=== PATIENT | female | born 1960 | race Caucasian/White ===

== ENCOUNTER 2023-12-22 06:59 | Day surgery (SDC) | payer BC ==
[2023-12-22] VITALS (9 sets, daily range): BP systolic 111–142; BP diastolic 43–93; PULSE 62–76; RESP 16; TEMP 97.8; O2SAT 96–99
[~2023-12-22] VITALS: Ht 177.8 cm; Wt 76.4 kg
[2023-12-22 08:49] LABS: PROTHROMBIN TIME 10.7 SECONDS (9.0-12.0)
[2023-12-22] MEDS ORDERED: OXYC10TA47 PO (08:53)
[2023-12-22] MEDS ORDERED: ATOR40TA72 PO (08:53)
[2023-12-22] MEDS ORDERED: UBID100C16 PO (08:53)
[2023-12-22] MEDS ORDERED: LEVO88TA7 PO (08:53)
[2023-12-22 10:05] LABS: ALBUMIN 3.7 G/DL (3.4-5.0); ANION GAP 8 (8-16); CALCIUM 9.9 MG/DL (8.5-10.1); CHLORIDE 105 MMOL/L (99-107); CREATININE 0.69 MG/DL (0.40-0.90); GLUCOSE 84 MG/DL (70-104); MAGNESIUM 1.9 MG/DL (1.5-2.4); SODIUM 138 MMOL/L (135-145); TOTAL CARBON DIOXIDE 25.4 MMOL/L (24-32); eCRCL 90 ML/MIN; eGFR 86 ML/MIN
[2023-12-22] MEDS: sodium bicarbonate 1meq/ml syr 150 ML in dextrose 5%-water 1,000 ML IV ONE (10:09)
[2023-12-22 10:14] LABS: BLOOD UREA NITROGEN 15 MG/DL (7-18); BUN/CREATININE RATIO 21.7 (10.0-20.0)
[2023-12-22] MEDS: normal saline 1,000 ML IV SCH (10:19)
[2023-12-22] MEDS: diphenhydrAMINE 25mg capsule PO PRN (10:20)
[2023-12-22] MEDS ORDERED: verapamil 2.5 mg/ml inj IV ONE (12:09)
[2023-12-22] MEDS ORDERED: LIDOcaine 1% (10mg/ml) 2ml vial ONE (12:09)
[2023-12-22] MEDS ORDERED: midazolam 1 mg/ML 2ml injection ONE (12:10)
[2023-12-22] MEDS ORDERED: iohexol 350MG/ML 100ml bottle IV ONE (12:10)
[2023-12-22] MEDS ORDERED: iohexol 350 MG/ML 50ML vial IV ONE (12:10)
[2023-12-22] MEDS ORDERED: fentaNYL/PF 50MCG/1 ML 2ML syringe ONE (12:10)
[2023-12-22] MEDS ORDERED: heparin 1,000unit/ml 10ml vial 10 ML ONE (12:10)
[2023-12-22] MEDS ORDERED: nitroGLYCERIN 500mcg/5mL D5W 5 ML IV ONE (12:12)
[2023-12-22 12:38] LABS: HEMATOCRIT 41.2 % (37.7-47.9); HEMOGLOBIN 13.6 G/DL (11.5-16.0); MEAN CORPUSCULAR HEMOGLOBIN 28.7 PG (27-31.2); MEAN CORPUSCULAR VOLUME 87.1 FL (81-97); PLATELET COUNT 346 X10'3 (130-400); RED BLOOD COUNT 4.73 X10'6 (3.60-4.90); RED CELL DISTRIBUTION WIDTH 13.2 % (11-16); WHITE BLOOD COUNT 13.1 X10'3 (4.5-11.0)
[2023-12-22] MEDS ORDERED: HYDROcodone/acetaminophen 5mg/325mg tablet PO PRN (13:50)
[2023-12-22] MEDS ORDERED: HYDROcodone/acetaminophen 10/325mg tab PO PRN (13:50)
[2023-12-22] MEDS ORDERED: ondansetron/PF 4mg/2ml inj IV PRN (13:50)
[2023-12-22] MEDS ORDERED: proCHLORperazine 10 MG/2 ml inj IV PRN (13:50)
[2023-12-22 14:14] LABS: MM BASOPHILS % (MANUAL) 2 % (0-1); MM EOSINOPHILS % (MANUAL) 1 % (0-6); MM LYMPHOCYTES % (MANUAL) 62 % (21-51); MM MONOCYTES % (MANUAL) 7 % (2-12); MM NEUTROPHILS % (MANUAL) 28 % (42-75); MM PLATELET ESTIMATE NORMAL; MM RBC MORPHOLOGY NORMAL; MM TOTAL CELLS COUNTED 100
== END 2023-12-22 16:05 | disposition home or self-care (01) ==
LOC: SSTAY O 06:59
PROVIDERS: ATTEND Internal Medicine Cardiovascular Disease
DX: R07.9 Chest pain, unspecified (principal); I25.10 Atherosclerotic heart disease of native coronary artery without angina pectoris; E78.00 Pure hypercholesterolemia, unspecified; E03.9 Hypothyroidism, unspecified; G43.109 Migraine with aura, not intractable, without status migrainosus; Z79.890 Hormone replacement therapy; Z79.891 Long term (current) use of opiate analgesic; Z90.722 Acquired absence of ovaries, bilateral; Z90.79 Acquired absence of other genital organ(s); Z98.890 Other specified postprocedural states; Z80.9 Family history of malignant neoplasm, unspecified; Z82.49 Family history of ischemic heart disease and other diseases of the circulatory system
CPT/HCPCS: 36415; 80048; 83735; 85025; 85610; 93005; 93458; 99152; 99153; C1760; J1644; J2250; J3010; J3490; J7030; J7070; Q0163; Q9967; 85007; C1894